=== PATIENT | female | born 1975 | race African-American/Black ===

== ENCOUNTER 2021-07-02 21:58 | Emergency (ER) | payer BC ==
[2021-07-03] MEDS ORDERED: Acetaminophen 500 MG TAB ONE (00:52)
[2021-07-03 01:11] LABS: #Basophils 0.1 10x3/uL (0.0-0.2); #Eosinphils 0.4 10x3/uL (0.0-0.5); #Monocytes 0.9 10x3/uL (0.0-1.1); #Neutrophils 4.5 10x3/uL (1.5-8.4); %Basophils 0.8 % (0.0-2.0); %Eosinophils 5.1 % (0.0-6.0); %Lymphocytes 31.7 % (18.0-47.0); %Monocytes 9.9 % (0.0-10.0); %Neutrophils 52.3 % (40.0-75.0); Hemoglobin 8.3 g/dL (12.0-15.5); Mean Corpuscular HGB CONC 28.4 g/dL (32.0-36.0); Mean Corpuscular Hemoglobin 20.8 pg (27.0-33.0); Mean Platelet Volume 10.4 fl (7.4-10.4); Platelet Count 378 10x3/uL (150-450); RBC Distribution Width 19.9 % (11.5-14.5); White Blood Cell (WBC) Count 8.7 10x3/uL (3.5-10.5)
[2021-07-03 01:19] LABS: ALT (SGPT) 12 U/L (8-55); AST (SGOT) 14 U/L (5-34); Albumin 3.7 g/dL (3.5-5.0); Alkaline Phosphatase 80 U/L (40-110); Anion Gap 11 mmol/L (10-20); BUN (Urea Nitrogen) 8 mg/dL (7.0-18.7); Bilirubin, Total 0.1 mg/dL (0.2-1.2); Calc. Creatinine Clearance 0 mL/min (70-130); Calcium 8.9 mg/dL (7.8-10.44); Carbon Dioxide 22 mmol/L (22-29); Chloride 106 mmol/L (98-107); Glucose 83 mg/dL (70-105); Potassium 3.4 mmol/L (3.5-5.1); Protein, Total 7.7 g/dL (6.0-8.3); Sodium 136 mmol/L (136-145)
[2021-07-03 05:45] LABS: Hypochromia SLIGHT = 6-15 cells (100X) (0-5/hpf)
[2021-07-03 05:46] LABS: Platelet Morphology Comment Appears Adequate
[2021-07-03 18:20] LABS: SARS-CoV-2 PCR by NAA Not Detected (NotDetected)
== END 2021-07-03 02:08 | disposition home or self-care (01) ==
LOC: CSHERS 21:58
DX: R07.89 Other chest pain (principal); R51.9 Headache, unspecified; I10 Essential (primary) hypertension; H92.02 Otalgia, left ear; D64.9 Anemia, unspecified; Z20.822 Contact with and (suspected) exposure to COVID-19; Z79.899 Other long term (current) drug therapy
CPT/HCPCS: 36415; 71045; 80053; 84484; 85025; 87804; 93005; U0003; U0005

== ENCOUNTER 2025-02-27 18:30 | Emergency (ER) | payer SELFPAY ==
[2025-02-27] MEDS ORDERED: Ketorolac Tromethamine 30 MG (1 mL) VIAL ONE (19:14)
[2025-02-27] MEDS ORDERED: HYDROcodone/Acetaminophen 5/325 mg Tablet ONE (19:14)
== END 2025-02-27 19:55 | disposition home or self-care (01) ==
LOC: CSHERS 18:30
DX: S39.012A Strain of muscle, fascia and tendon of lower back, initial encounter (principal); S60.211A Contusion of right wrist, initial encounter; I10 Essential (primary) hypertension; V89.2XXA Person injured in unspecified motor-vehicle accident, traffic, initial encounter; Z79.899 Other long term (current) drug therapy
CPT/HCPCS: 72100; 96372; 99284; J1885